=== PATIENT | male | born 1940 | race Caucasian/White ===

== ENCOUNTER 2018-04-25 10:44 | Emergency (ER) | payer OTHER ==
--- OUTSIDE RECORDS SUMMARY | 2018-04-25 10:47 | XMS REPORT ---
:1940 [facility] Address [address] [place] [address] Dr. Johnson [address] [place] [address] Care Team Providers Name Role Phone Unavailable Unavailable Unavailable Problems This patient has no known problems. Allergies, Adverse Reactions, Alerts This patient has no known allergies or adverse reactions. Medications This patient has no known medications.
[2018-04-25] MEDS ORDERED: ALBUTEROL 2.5 MG/3 ML NEB SOL ONE (11:31)
[2018-04-25] MEDS ORDERED: IPRATROPIUM BROM 0.5MG/2.5ML ONE (11:31)
--- NOTE | 2018-04-25 11:40 | RAD REPORT ---
EXAM DESCRIPTION: RAD - Chest Single View - 04/25/2018 11:35 am CLINICAL HISTORY: Cough COMPARISON: December 2013 TECHNIQUE: AP portable chest image was obtained 1129 hours . FINDINGS: Lung volumes are low accentuating lung markings. No focal consolidation, mass or failure f inding. Heart and vasculature are normal. No measurable pleural effusion and no pneumothorax. No acut e bony abnormality seen. No acute aortic findings suspected. IMPRESSION: No acute cardiopulmonary process. When adjusting for the shallow inspiration, chest is not substantially different from 2014.
[2018-04-25 11:41] LABS: Absolute Lymphocytes (CBC) 1.3 K/uL (0.7-4.9); Absolute Monocytes 0.7 K/uL (0.1-1.3); Absolute Neutrophil 10.1 K/uL (1.8-8.0); Basophils % 0.5 % (0-1.3); Eosinophils % 2.4 % (0-4.4); Hematocrit 43.5 % (39.6-49.0); Lymphocytes % 10.2 % (15.3-44.8); MPV 8.4 fL (7.6-11.3); Monocytes % 5.9 % (3.3-12.3); RBC Red Blood Cell Count 4.62 M/uL (4.33-5.43)
[2018-04-25 11:43] LABS: Protime INR 1.08
[2018-04-25 12:01] LABS: ALT/SGPT 26 U/L (12-78); AST/SGOT 14 U/L (15-37); Albumin 3.4 g/dL (3.4-5.0); Alkaline Phosphatase 78 U/L (45-117); BUN Blood Urea Nitrogen 20 mg/dL (7-18); Bicarbonate 27 mmol/L (21-32); Bilirubin Direct 0.1 mg/dL (0-0.2); Bilirubin Total 0.5 mg/dL (0.2-1.0); Glucose Level 95 mg/dL (74-106); Magnesium 2.3 mg/dL (1.8-2.4); NT PRO-BNP 162 pg/mL (<450); Potassium 4.3 mmol/L (3.5-5.1); Protein, Total 7.6 g/dL (6.4-8.2); Sodium Level 142 mmol/L (136-145); Troponin (Emerg Dept Use Only) < 0.02 ng/mL (0.0-0.045)
--- NOTE | 2018-04-25 13:06 | RAD REPORT ---
EXAM DESCRIPTION: CT - Thorax W/ Con - 04/25/2018 12:57 pm CLINICAL HISTORY: Cough, weakness COMPARISON: None. TECHNIQUE: Dynamically enhanced 5 mm thick images of the chest were obtained during administration o f 100 mL non-ionic IV contrast. All CT scans are performed using dose optimization technique as appropriate and may include automated exposure control or mA/KV adjustment according to patient size. FINDINGS: No mass or infiltrate in the lung parenchyma. No pleural thickening or pleural effusion. N o pneumothorax. No chest wall mass or abnormal axillary lymphadenopathy. Trace amount of atelectasis in each posterior gutter. No abnormal mediastinal or hilar mass or lymphadenopathy seen. Heart size is upper normal. No pericardial thickening or effusion. Bony degenerative changes are present. No acute or pathologic bone process identified. IMPRESSION: Minimal atelectasis in each posterior gutter. No acute or significant chest finding.
[2018-04-25] MEDS ORDERED: NA CHLORIDE 0.9% 250 ML ONE (13:23)
[2018-04-25] MEDS ORDERED: METHYLPREDNISOLONE 125 MG INJ ONE (13:23)
--- NOTE | 2018-04-25 15:14 | ER ---
Nurse's Notes [facility] Name: Kei Raya Age: 77 yrs Sex: Male : 1940 Arrival Date: 04/25/2018 Time: 10:50 Bed 7 Private MD: Samm Kong Diagnosis: Acute upper respiratory infection, unspecified Presentation: 04/25 11:01 Presenting complaint: Child states: He has had diarrhea over the last few days, sg worsening today. He has also had cough and sounds like his chest is congested, hes become very weak i think from the diarrhea, he might be dehydrated. Transition of care: patient was not received from another setting of care. Onset of symptoms was April 25, 2018. Risk Assessment: Do you want to hurt yourself or someone else? Patient reports no desire to harm self or others. Initial Sepsis Screen: Does the patient meet any 2 criteria? No. Patient's initial sepsis screen is negative. Does the patient have a suspected source of infection? Yes: Productive cough/pneumonia. Care prior to arrival: None. 11:01 Method Of Arrival: Wheelchair sg 11:01 Acuity: NILAM 3 sg Historical: - Allergies: 11:04 No Known Allergies; sg - Home Meds: 11:18 lisinopril 10 mg Oral tab 1 tab once daily [Active]; divalproex 250 mg oral TbEC 1 tab jl7 once daily [Active]; allopurinol 100 mg Oral tab 1 tab once daily [Active]; Naqzmaric 28/10mg daily [Active]; risperidone 1 mg oral TbDL 1 tab once daily [Active]; prednisone 20 mg Oral tab 5 tabs [Active]; - PMHx: 11:04 Gout; sg 11:18 Hypertension; Alzheimers; jl7 - Immunization history:: Adult Immunizations up to date. - Social history:: Smoking status: unknown. - Ebola Screening: : Patient negative for fever greater than or equal to 101.5 degrees Fahrenheit, and additional compatible Ebola Virus Disease symptoms Patient denies exposure to infectious person Patient denies travel to an Ebola-affected area in the 21 days before illness onset No symptoms or risks identified at this time. Screenin:18 Abuse screen: Denies threats or abuse. Denies injuries from another. Nutritional jl7 screening: No deficits noted. Tuberculosis screening: No symptoms or risk factors identified. Fall Risk Secondary diagnosis (15 points) Alzheimer's, IV access (20 points). Total Bedoya Fall Scale indicates Low Risk Score (25-44 pts). Fall prevention measures have been instituted. Side Rails Up X 2 Placed close to Nursing Station Frequent Obs/Assesments occuring Family Present and informed to notify staff if they need to leave bedside As available Patient and Family Educated on Fall Prevention Program and strategies. Assessment: 11:11 General: Appears in no apparent distress. uncomfortable, Behavior is calm, cooperative. jl7 Pain: Denies pain. Neuro: Level of Consciousness is awake, alert, Oriented to PT's family reports "He's a lot less verbal since Thanksgiving.". Cardiovascular: Heart tones S1 S2 present Patient's skin is warm and dry. Respiratory: Airway is patent Respiratory effort is even, unlabored, Respiratory pattern is regular, symmetrical. GI: Bowel sounds present X 4 quads. Parent/caregiver reports the patient having diarrhea, since this morning. : No signs and/or symptoms were reported regarding the genitourinary system. EENT: No signs and/or symptoms were reported regarding the EENT system. Derm: Skin is pink, warm \\T\\ dry. Musculoskeletal: No signs and/or symptoms reported regarding the musculoskeletal system. 12:00 Reassessment: Patient appears in no apparent distress at this time. No changes from jl7 previously documented assessment. Patient and/or family updated on plan of care and expected duration. Pain level reassessed. Patient is alert, oriented x 3, equal unlabored respirations, skin warm/dry/pink. 13:30 Reassessment: Patient and/or family updated on plan of care and expected duration. Pain jl7 level reassessed. Patient is alert, oriented x 3, equal unlabored respirations, skin warm/dry/pink. 15:00 Reassessment: Pt reports pain in the left knee, rated 8/10, ERP notified, see MAR for jl7 orders. 15:15 Reassessment: Patient states symptoms have improved. jl7 Vital Signs: 11:00 BP 110 / 71; jl7 11:03 Pulse 87; Resp 20; Temp 99.0; Pulse Ox 96% on R/A; Weight 108.86 kg; Height 6 ft. 0 in. sg (182.88 cm); 11:30 BP 107 / 46; Pulse 81; Resp 16 S; Pulse Ox 100% on R/A; jl7 12:00 BP 99 / 50; Pulse 103; Resp 16 S; Pulse Ox 100% on R/A; jl7 12:30 BP 100 / 62; Pulse 115; Resp 16 S; Pulse Ox 100% on R/A; jl7 13:36 BP 119 / 58; Pulse 91; Resp 14 S; Pulse Ox 99% on R/A; jl7 15:00 BP 120 / 65; Pulse 90; Resp 16 S; Pulse Ox 100% on R/A; jl7 16:13 BP 118 / 61; Pulse 89; Resp 16 S; Pulse Ox 100% on R/A; jl7 11:03 Body Mass Index 32.55 (108.86 kg, 182.88 cm) ED Course: 10:50 Patient arrived in ED. mr 10:50 Samm Kong MD is Private Physician. mr 10:56 Jose Matthew PA is PHCP. cp 10:56 Jose Gibson MD is Attending Physician. cp 11:03 Meri Santana RN is Primary Nurse. jl7 11:03 Triage completed. sg 11:03 Arm band placed on. sg 11:05 First set of blood cultures drawn by me. jb1 11:18 Patient has correct armband on for positive identification. Placed in gown. Bed in low jl7 position. Call light in reach. Side rails up X2. green building energy engineer on. Pulse ox on. NIBP on. 11:20 Second set of blood cultures drawn by me. jb1 11:22 EKG done, reviewed by Jose MARROQUIN. at1 11:30 Inserted saline lock: 22 gauge in right antecubital area, using aseptic technique. jb1 Blood collected. 11:30 Initial lab(s) drawn, by me, sent to lab. jb1 11:30 Flu and/or RSV swab sent to lab. jb1 11:34 Procalcitonin Sent. jl7 11:36 XRAY Chest (1 view) In Process Unspecified. EDMS 12:58 CT Chest W/ Con In Process Unspecified. EDMS 15:00 Urine collected: straight cath specimen, clear. Straight cath inserted, using sterile jl7 technique, 16 Fr. Specimen obtained. 16:15 No provider procedures requiring assistance completed. IV discontinued, intact, jl7 bleeding controlled, No redness/swelling at site. Pressure dressing applied. Administered Medications: 11:23 Drug: Albuterol - atroVENT (3:1) (2.5 mg - 0.5 mg) 3 ml Route: Nebulizer; jl7 12:00 Follow up: Response: No adverse reaction jl7 13:24 Drug: NS 0.9% 250 ml Route: IV; Rate: bolus; Site: right antecubital; jl7 14:00 Follow up: Response: No adverse reaction; IV Status: Completed infusion jl7 13:24 Drug: SOLU-Medrol 125 mg Route: IVP; Site: right antecubital; jl7 14:00 Follow up: Response: No adverse reaction jl7 15:00 Drug: fentaNYL (PF) 25 mcg Route: IVP; Site: right antecubital; jl7 16:12 Follow up: Response: No adverse reaction jl7 Outcome: 15:13 Discharge ordered by MD. cp 16:15 Discharged to home via wheelchair, with family. jl7 16:15 Condition: stable 16:15 Discharge instructions given to patient, family, Instructed on discharge instructions, follow up and referral plans. medication usage, Demonstrated understanding of instructions, follow-up care, medications, Prescriptions given X 2. 16:17 Patient left the ED. jl7 Signatures: Dispatcher [employer] EDChai Hernandez jb1 Vinicius Olson, RN Mariela Ramos Amanda, pump press operator EKG Tat1 Jose Matthew PA PA cp Leal, Jahala, RN INDY zarate
--- NOTE | 2018-04-25 15:15 | EDPHYS ---
Physician Documentation [facility] Name: Kei Raya Age: 77 yrs Sex: Male : 1940 Arrival Date: 04/25/2018 Time: 10:50 Bed 7 Private MD: Samm Kong ED Physician Jose Gibson HPI: 04/25 11:14 This 77 yrs old Male presents to ER via Wheelchair with complaints of cp Diarrhea, Cough, Congestion. 11:14 The patient or guardian reports cough, that is intermittent. Onset: The cp symptoms/episode began/occurred last month. 11:14 Associated signs and symptoms: Pertinent positives: diarrhea, Pertinent negatives: cp chest pain, fever, vomiting. Severity of symptoms: in the emergency department the symptoms are unchanged. 11:15 Family report patient is a resident of assisted living and recently finished cp prescriptions for Zithromax and prednisone. Historical: - Allergies: 11:04 No Known Allergies; sg - Home Meds: 11:18 lisinopril 10 mg Oral tab 1 tab once daily [Active]; divalproex 250 mg oral TbEC 1 tab jl7 once daily [Active]; allopurinol 100 mg Oral tab 1 tab once daily [Active]; Naqzmaric 28/10mg daily [Active]; risperidone 1 mg oral TbDL 1 tab once daily [Active]; prednisone 20 mg Oral tab 5 tabs [Active]; - PMHx: 11:04 Gout; sg 11:18 Hypertension; Alzheimers; jl7 - Immunization history:: Adult Immunizations up to date. - Social history:: Smoking status: unknown. - Ebola Screening: : Patient negative for fever greater than or equal to 101.5 degrees Fahrenheit, and additional compatible Ebola Virus Disease symptoms Patient denies exposure to infectious person Patient denies travel to an Ebola-affected area in the 21 days before illness onset No symptoms or risks identified at this time. ROS: 11:18 Constitutional: Negative for body aches, fever, poor PO intake. cp 11:18 Eyes: Negative for injury, pain, redness, and discharge. cp 11:18 ENT: Negative for drainage from ear(s), ear pain, sore throat, difficulty swallowing, difficulty handling secretions. 11:18 Cardiovascular: Negative for chest pain. 11:18 Respiratory: Positive for cough, wheezing. 11:18 Abdomen/GI: Positive for diarrhea, Negative for abdominal pain, vomiting, constipation, black/tarry stool, rectal bleeding. 11:18 Back: Negative for pain at rest, pain with movement, radiated pain. 11:18 Skin: Negative for cellulitis, rash. 11:18 Neuro: Positive for general weakness, Negative for altered mental status, dizziness, headache. 11:18 All other systems are negative. Exam: 11:21 ECG was reviewed by the Attending Physician. cp 11:24 Constitutional: The patient appears in no acute distress, alert, awake, cp non-diaphoretic, non-toxic, well developed, well nourished. 11:24 Head/Face: Normocephalic, atraumatic. cp 11:24 Eyes: Periorbital structures: appear normal, Conjunctiva: normal, no exudate, no injection, Sclera: no appreciated abnormality, Lids and lashes: appear normal, bilaterally. 11:24 ENT: External ear(s): are unremarkable, Ear canal(s): are normal, clear, TM's: bulging, is not appreciated, bilaterally, erythema, is not appreciated, bilaterally, Nose: is normal, Mouth: Lips: moist, Oral mucosa: pink and intact, moist, Posterior pharynx: Airway: no evidence of obstruction, patent, Tonsils: are normal in appearance. 11:24 Neck: ROM/movement: is normal, is supple, without pain, no range of motions limitations, no meningismus, no nuchal rigidity. 11:24 Chest/axilla: Inspection: normal, Palpation: is normal, no crepitus, no tenderness. 11:24 Cardiovascular: Rate: normal, Rhythm: regular, Edema: ankle edema, that is very mild, JVD: is not appreciated. 11:24 Respiratory: the patient does not display signs of respiratory distress, Respirations: normal, no use of accessory muscles, no retractions, no splinting, no tachypnea, labored breathing, is not present, Breath sounds: bronchial sounds, that are mild, are heard diffusely, rhonchi, are not appreciated, stridor, is not appreciated, wheezing: that is mild, is heard diffusely. 11:24 Abdomen/GI: Inspection: abdomen appears normal, Bowel sounds: active, all quadrants, Palpation: abdomen is soft and non-tender, in all quadrants. 11:24 Back: pain, is absent, ROM is normal. 11:24 Skin: cellulitis, is not appreciated, no rash present. Vital Signs: 11:00 BP 110 / 71; jl7 11:03 Pulse 87; Resp 20; Temp 99.0; Pulse Ox 96% on R/A; Weight 108.86 kg; Height 6 ft. 0 in. sg (182.88 cm); 11:30 BP 107 / 46; Pulse 81; Resp 16 S; Pulse Ox 100% on R/A; jl7 12:00 BP 99 / 50; Pulse 103; Resp 16 S; Pulse Ox 100% on R/A; jl7 12:30 BP 100 / 62; Pulse 115; Resp 16 S; Pulse Ox 100% on R/A; jl7 13:36 BP 119 / 58; Pulse 91; Resp 14 S; Pulse Ox 99% on R/A; jl7 15:00 BP 120 / 65; Pulse 90; Resp 16 S; Pulse Ox 100% on R/A; jl7 16:13 BP 118 / 61; Pulse 89; Resp 16 S; Pulse Ox 100% on R/A; jl7 11:03 Body Mass Index 32.55 (108.86 kg, 182.88 cm) sg MDM: 10:56 Patient medically screened. cp 11:30 Differential diagnosis: bronchitis, flu, URI, pneumonia, sepsis, UTI. cp 15:12 Antibiotic administration: Not indicated, the patient does not have an appreciated cp infiltrate. 15:12 Data reviewed: vital signs, nurses notes, lab test result(s), EKG, radiologic studies, cp plain films. Test interpretation: by ED physician or midlevel provider: ECG, plain radiologic studies. Counseling: I had a detailed discussion with the patient and/or guardian regarding: the historical points, exam findings, and any diagnostic results supporting the discharge/admit diagnosis, lab results, radiology results, to return to the emergency department if symptoms worsen or persist or if there are any questions or concerns that arise at home. Response to treatment: the patient's symptoms have markedly improved after treatment, and as a result, I will discharge patient. 04/25 11:10 Order name: Influenza Screen (a \T\ B) cp 04/25 11:10 Order name: Blood Culture Adult (2) cp 04/25 11:10 Order name: Procalcitonin cp 04/25 11:10 Order name: Lactate; Complete Time: 12:19 04/25 11:10 Order name: Basic Metabolic Panel; Complete Time: 12:19 04/25 12:23 Interpretation: Normal except: CL 109; BUN 20; CRE 1.36; GFR 51; CA 8.4. cp 04/25 11:10 Order name: CBC with Diff; Complete Time: 11:55 04/25 11:55 Interpretation: Normal except: WBC 12.5; MCV 94.2; GRACIELA% 81.0; LYM% 10.2; NEUT A 10.1. cp 04/25 11:10 Order name: LFT's; Complete Time: 12:19 04/25 12:20 Interpretation: Normal except: AST 14; GLOB 4.2; A/G 0.8. 04/25 11:10 Order name: Magnesium; Complete Time: 12:19 04/25 11:10 Order name: NT PRO-BNP; Complete Time: 12:19 04/25 11:10 Order name: PT-INR; Complete Time: 11:55 04/25 11:10 Order name: Troponin (emerg Dept Use Only); Complete Time: 12:19 04/25 12:21 Interpretation: TROPED < 0.02; Reviewed. 04/25 11:10 Order name: Influenza Screen (A ; Complete Time: 12:19 [facility] 04/25 12:24 Interpretation: Reviewed. 04/25 11:10 Order name: Blood Culture [facility] 04/25 11:10 Order name: Procalcitonin; Complete Time: 12:23 [facility] 04/25 11:10 Order name: XRAY Chest (1 view); Complete Time: 11:55 04/25 11:10 Order name: EKG; Complete Time: 11:11 04/25 11:10 Order name: Cardiac monitoring; Complete Time: 11:31 04/25 11:10 Order name: EKG - Nurse/Tech; Complete Time: 11:31 04/25 11:10 Order name: IV Saline Lock; Complete Time: 11:31 04/25 11:10 Order name: Labs collected and sent; Complete Time: 11:31 04/25 11:10 Order name: O2 Per Protocol; Complete Time: 11:31 04/25 11:10 Order name: O2 Sat Monitoring; Complete Time: 11:31 cp 04/25 11:55 Order name: Urine Microscopic Only cp 04/25 11:55 Order name: Urine Dipstick-Ancillary (obtain specimen); Complete Time: 14:52 cp 04/25 12:31 Order name: CT Chest W/ Con; Complete Time: 13:18 cp 04/25 13:18 Interpretation: Report reviewed. cp 04/25 15:05 Order name: Urine Dipstick--Ancillary (enter results) em1 04/25 13:25 Order name: PO challenge; Complete Time: 16:09 cp EC:21 Rate is 83 beats/min. Rhythm is regular. OH interval is normal. QRS interval is normal. cp QT interval is normal. Interpreted by me. Reviewed by me. Administered Medications: 11:23 Drug: Albuterol - atroVENT (3:1) (2.5 mg - 0.5 mg) 3 ml Route: Nebulizer; 7 12:00 Follow up: Response: No adverse reaction [facility] 13:24 Drug: NS 0.9% 250 ml Route: IV; Rate: bolus; Site: right antecubital; jl7 14:00 Follow up: Response: No adverse reaction; IV Status: Completed infusion jl7 13:24 Drug: SOLU-Medrol 125 mg Route: IVP; Site: right antecubital; jl7 14:00 Follow up: Response: No adverse reaction jl7 15:00 Drug: fentaNYL (PF) 25 mcg Route: IVP; Site: right antecubital; jl7 16:12 Follow up: Response: No adverse reaction [facility] Disposition: 04/26 07:08 Co-signature as Attending Physician, Jose Gibson MD I agree with the assessment and evette plan of care. Disposition: 04/25/18 15:13 Discharged to Home. Impression: Acute upper respiratory infection, unspecified. - Condition is Stable. - Discharge Instructions: Upper Respiratory Infection, Adult. - Prescriptions for Albuterol Sulfate 2.5 mg /3 mL (0.083 %) Inhalation Solution for Nebulization - inhale 1 unit by NEBULIZATION route every 8 hours As needed; 1 box. Prednisone 20 mg Oral Tablet - take 2 tablet by ORAL route once daily for 5 days; 10 tablet. - Medication Reconciliation Form, Thank You Letter, Antibiotic Education, Prescription Opioid Use form. - Follow up: Private Physician; When: 1 - 2 days; Reason: Recheck today's complaints. - Problem is new. - Symptoms have improved. Signatures: Dispatcher [employer] EDVinicius Garcia, RN RN Jose Jade MD MD cha Page, Corey, LOPEZ MARORQUIN cp Meri Santana RN RN jl7 Corrections: (The following items were deleted from the chart) 04/25 12:23 12:20 Normal except: CL 109; BUN 20; CRE 1.36; GFR 51. cp cp 16:17 15:13 04/25/2018 15:13 Discharged to Home. Impression: Acute upper respiratory jl7 infection, unspecified. Condition is Stable. Forms are Medication Reconciliation Form, Thank You Letter, Antibiotic Education, Prescription Opioid Use. Follow up: Private Physician; When: 1 - 2 days; Reason: Recheck today's complaints. Problem is new. Symptoms have improved. cp
[2018-04-25 15:25] LABS: Urine Bacteria <20 /HPF (NONE SEEN)
[2018-04-25 15:26] LABS: Urine Blood TRACE (NEG); Urine Glucose NEGATIVE (NEG); Urine Protein NEGATIVE (NEG)
[2018-04-25 15:26] LABS: Urine Culture Reflex Order NOT NEEDED
[2018-04-25 16:40] VITALS: TEMP 99
[2018-04-25 16:46] VITALS: O2SAT 100
[2018-04-25 16:48] VITALS: BP 118/61
--- NOTE | 2018-04-26 06:24 | EKG ---
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
== END 2018-04-25 16:17 | disposition home or self-care (01) ==
LOC: ER 10:44
DX: J06.9 Acute upper respiratory infection, unspecified (principal); I10 Essential (primary) hypertension; G30.9 Alzheimer's disease, unspecified; F02.80 Dementia in other diseases classified elsewhere, unspecified severity, without behavioral disturbance, psychotic disturbance, mood disturbance, and anxiety; R19.7 Diarrhea, unspecified
CPT/HCPCS: 36415; 51702; 71045; 71260; 80048; 80076; 83605; 83735; 83880; 84145; 84484; 85025; 85610; 87040 ×2; 87804 ×2; 93005; 94640; 96365; 96375; 99285; J2930; Q9967; 81003; 81015

== ENCOUNTER 2018-06-04 12:29 | Emergency (ER) | payer OTHER ==
--- OUTSIDE RECORDS SUMMARY | 2018-06-04 12:31 | XMS REPORT ---
:1940 [facility] Address [address] [place] [address] Dr. Johnson [address] [place] [address] Care Team Providers Name Role Phone Unavailable Unavailable Unavailable Problems This patient has no known problems. Allergies, Adverse Reactions, Alerts This patient has no known allergies or adverse reactions. Medications This patient has no known medications.
--- NOTE | 2018-06-04 14:27 | RAD REPORT ---
EXAM DESCRIPTION: CT - C Spine Wo Con - 06/04/2018 2:19 pm CLINICAL HISTORY: PAIN Neck pain, injury, radiculopathy COMPARISON: CT HEAD CSPINE MPR WO CONTRAST dated 05/10/2015 FINDINGS: Prominent degenerative changes present throughout the mid and lower cervical spine. Advanc ed disc thinning with large posterior osteophyte noted at C5-6. 3 mm degenerative anterolisthesis is present C7 on T1. Bony fusion of the vertebral bodies noted at C6 -7. No evidence of acute cervical spine fracture or subluxation. Prevertebral soft tissues are normal in thickness. Mild polypoid mucosal thickening affects the left maxillary antrum. IMPRESSION: Moderate multilevel spondylosis of the mid and lower cervical spine is noted without acu te traumatic finding seen. If symptomology persists or progresses, MR imaging may be of value. All CT scans are performed using dose optimization technique as appropriate and may include automated exposure control or mA/KV adjustment according to patient size.
--- NOTE | 2018-06-04 14:34 | RAD REPORT ---
EXAM DESCRIPTION: CT - Foot Left Wo Con - 06/04/2018 2:19 pm CLINICAL HISTORY: PAIN Foot wound/ ulcer, possible osteomyelitis COMPARISON: No comparisons FINDINGS: Skin thickening with subcutaneous fat stranding is seen along the forefoot. There is ill-d efined tissue adjacent to the fifth metacarpal distally and fifth metacarpal head along the lateral m argin of the foot. Moderate soft tissue edema in the subcutaneous space along the lateral malleolus a lso evident. Moderate metatarsus primus adductus is seen with hallux valgus. No acute fracture or subluxation seen . No bony destructive finding is identified to indicate osteomyelitis. No soft tissue mass, hematoma or fluid collection. Tiny metallic foreign body is likely present in the heel pad measuring 3 mm and approximately 10 mm d eep to the skin surface. IMPRESSION: No bony destructive changes seen to indicate osteomyelitis at this time. If there is con tinued clinical concern for possible osteomyelitis, MR imaging would be advised which is more sensiti ve for early osteomyelitis findings. All CT scans are performed using dose optimization technique as appropriate and may include automated exposure control or mA/KV adjustment according to patient size.
[2018-06-04 14:55] LABS: Absolute Lymphocytes (CBC) 2.5 K/uL (0.7-4.9); Absolute Monocytes 0.7 K/uL (0.1-1.3); Absolute Neutrophil 6.2 K/uL (1.8-8.0); Basophils % 0.5 % (0-1.3); Eosinophils % 5.1 % (0-4.4); Hematocrit 40.9 % (39.6-49.0); MPV 10.1 fL (7.6-11.3); Monocytes % 6.7 % (3.3-12.3); RBC Red Blood Cell Count 4.33 M/uL (4.33-5.43)
[2018-06-04 15:28] LABS: Potassium 4.6 mmol/L (3.5-5.1)
--- NOTE | 2018-06-04 16:17 | ER ---
Nurse's Notes [facility] Name: Kei Raya Age: 77 yrs Sex: Male : 1940 Arrival Date: 06/04/2018 Time: 12:33 Bed 15 Private MD: Diagnosis: Cellulitis of left toe;Spondylolysis, cervical region Presentation: 06/04 12:34 Presenting complaint: Left foot wound x 3 weeks. Transition of care: patient was not hb received from another setting of care. Onset of symptoms is unknown. Risk Assessment: Do you want to hurt yourself or someone else? Patient reports no desire to harm self or others. Care prior to arrival: None. 12:34 Method Of Arrival: Wheelchair hb 12:34 Acuity: NILAM 3 hb 12:40 Initial Sepsis Screen: Does the patient meet any 2 criteria? No. Patient's initial rb1 sepsis screen is negative. Does the patient have a suspected source of infection? No. Patient's initial sepsis screen is negative. Historical: - Allergies: 12:38 No Known Allergies; hb - Home Meds: 12:38 allopurinol 100 mg Oral tab 1 tab once daily [Active]; divalproex 250 mg Oral TbEC 1 hb tab once daily [Active]; lisinopril 10 mg Oral tab 1 tab once daily [Active]; Naqzmaric 28/10mg daily [Active]; risperidone 1 mg Oral TbDL 1 tab once daily [Active]; prednisone 20 mg Oral tab 5 tabs [Active]; - PMHx: 12:38 Alzheimers; Gout; Hypertension; hb - PSHx: 12:40 Knee surgery; elbow; right foot; rb1 - Immunization history:: Adult Immunizations up to date. - Social history:: Smoking status: Patient/guardian denies using tobacco. - Ebola Screening: : No symptoms or risks identified at this time. Screenin:40 Abuse screen: Denies threats or abuse. Nutritional screening: No deficits noted. rb1 Tuberculosis screening: No symptoms or risk factors identified. Fall Risk None identified. Assessment: 12:40 General: Appears in no apparent distress. comfortable, Behavior is calm, cooperative, rb1 Denies fever. General: Pt. is from [facility], an assisted living facility.. Pain: Complains of pain in neck Pain currently is 7 out of 10 on a pain scale. Neuro: Level of Consciousness is awake, obeys commands, confused, Oriented to person, situation, History of Alzheimers. Cardiovascular: Capillary refill < 3 seconds is brisk in bilateral toes. Respiratory: Airway is patent Respiratory effort is even, unlabored, Respiratory pattern is regular, symmetrical. GI: No signs and/or symptoms were reported involving the gastrointestinal system. : No signs and/or symptoms were reported regarding the genitourinary system. Derm: Wound noted left toes Other: Pt. had an ingrown toenail removed and just finished taking oral antibiotics. 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 13:40 Reassessment: Pt. off unit for testing. rb1 14:40 Reassessment: Patient appears in no apparent distress at this time. Patient and/or rb1 family updated on plan of care and expected duration. Pain level reassessed. Patient is alert, oriented x 3, equal unlabored respirations, skin warm/dry/pink. Respirations even, unlabored. 15:40 Reassessment: Patient appears in no apparent distress at this time. Pt. is resting with rb1 eyes closed, respirations even, unlabored. Call light within reach. Family at bedside. 16:34 Reassessment: Patient appears in no apparent distress at this time. Patient and/or rb1 family updated on plan of care and expected duration. Pain level reassessed. Patient is alert, oriented x 3, equal unlabored respirations, skin warm/dry/pink. Vital Signs: 12:37 BP 105 / 53; Pulse 75; Resp 16; Temp 97.2; Pulse Ox 100% on R/A; hb 13:30 rb1 14:30 BP 101 / 52; Pulse 63; Resp 15; Pulse Ox 100% on R/A; rb1 15:30 BP 125 / 71; Pulse 68; Resp 16; Pulse Ox 98% on R/A; Pain 0/10; rb1 16:30 BP 110 / 58; Pulse 63; Resp 15; Pulse Ox 99% on R/A; Pain 4/10; rb1 13:30 Pt off unit for testing [facility] ED Course: 12:33 Patient arrived in ED. as 12:36 Triage completed. hb 12:37 Arm band placed on. hb 12:40 Patient has correct armband on for positive identification. Bed in low position. Call rb1 light in reach. Side rails up X 1. Pulse ox on. NIBP on. 12:55 Nayan Chang MD is Attending Physician. 13:12 Chaparrita Inman, RN is Primary Nurse. rb1 13:25 CT completed. Patient tolerated procedure well. Patient moved to CT via stretcher. sj Patient moved back from CT. 13:37 Patient moved to MRI via stretcher. ka 14:20 C Spine Wo Con In Process Unspecified. EDMS 14:20 Foot Left Wo Con In Process Unspecified. EDMS 14:45 Initial lab(s) drawn, by ct, sent to lab. First set of blood cultures drawn by ct, [facility] Second set of blood cultures drawn by ct. 14:47 Inserted saline lock: 20 gauge in right antecubital area, using aseptic technique. 5 Blood collected. 14:49 Patient has correct armband on for positive identification. Placed in gown. Bed in low mh5 position. Call light in reach. Side rails up X2. Adult w/ patient. Warm blanket given. monitoring analyst on. Pulse ox on. NIBP on. 14:50 Basic Metabolic Panel Sent. [facility] 14:51 CBC with Diff Sent. [facility] 14:51 Blood Culture* Sent. [facility] 16:15 Reginaldo Dietz DPM is Referral Physician. 16:35 No provider procedures requiring assistance completed. IV discontinued, intact, rb1 bleeding controlled, No redness/swelling at site. Pressure dressing applied. Administered Medications: No medications were administered Outcome: 16:16 Discharge ordered by . 16:35 Discharged to Assisted Living. Family is transporting the pt. to the facility. Pt. left [facility] ED via wheelchair with family. 16:35 Condition: stable 16:35 Discharge instructions given to family, Instructed on discharge instructions, follow up and referral plans. medication usage, Demonstrated understanding of instructions, follow-up care, medications, Prescriptions given X 1. 16:37 Patient left the ED. rb1 Signatures: Dispatcher [employer] EDMS Claudia Bishop Amelia as Barber, Rebecca, RN INDY rb1 Noreen Pike Heather, RN RN hb Martinez, Maria [facility] Nayan Chang MD MD Corrections: (The following items were deleted from the chart) 13:59 13:50 In radiology for Foot Left Wo Cont. EDMS EDMS
--- NOTE | 2018-06-04 16:17 | EDPHYS ---
Physician Documentation [facility] Name: Kei Raya Age: 77 yrs Sex: Male : 1940 Arrival Date: 06/04/2018 Time: 12:33 Bed 15 Private MD: ED Physician Nayan Chang HPI: 06/04 16:03 This 77 yrs old Male presents to ER via Wheelchair with complaints of Foot gs Infection. 16:03 Description: draining, erythematous. Onset: The symptoms/episode began/occurred 1 gs week(s) ago. Possible cause(s): unknown. Associated signs and symptoms: Pertinent negatives: fever. Modifying factors: the symptoms are alleviated by nothing, the symptoms are aggravated by nothing. Severity of symptoms: At their worst the symptoms were moderate, in the emergency department the symptoms are unchanged. The patient has not experienced similar symptoms in the past. Historical: - Allergies: 12:38 No Known Allergies; hb - Home Meds: 12:38 allopurinol 100 mg Oral tab 1 tab once daily [Active]; divalproex 250 mg Oral TbEC 1 hb tab once daily [Active]; lisinopril 10 mg Oral tab 1 tab once daily [Active]; Naqzmaric 28/10mg daily [Active]; risperidone 1 mg Oral TbDL 1 tab once daily [Active]; prednisone 20 mg Oral tab 5 tabs [Active]; - PMHx: 12:38 Alzheimers; Gout; Hypertension; hb - PSHx: 12:40 Knee surgery; elbow; right foot; rb1 - Immunization history:: Adult Immunizations up to date. - Social history:: Smoking status: Patient/guardian denies using tobacco. - Ebola Screening: : No symptoms or risks identified at this time. ROS: 16:03 All other systems are negative. gs 16:03 Neck: Positive for pain with movement, no injury. gs Exam: 16:03 Cardiovascular: Regular rate and rhythm with a normal S1 and S2. No gallops, murmurs, gs or rubs. Normal PMI, no JVD. No pulse deficits. Respiratory: Lungs have equal breath sounds bilaterally, clear to auscultation and percussion. No rales, rhonchi or wheezes noted. No increased work of breathing, no retractions or nasal flaring. Abdomen/GI: Soft, non-tender, with normal bowel sounds. No distension or tympany. No guarding or rebound. No evidence of tenderness throughout. Back: No spinal tenderness. No costovertebral tenderness. Full range of motion. Skin: Warm, dry with normal turgor. Normal color with no rashes, no lesions, and no evidence of cellulitis. 16:03 Constitutional: The patient appears alert, awake. 16:03 Neck: External neck: tenderness, that is mild, of the left trapezius, lower cervical area and right trapezius. 16:03 Musculoskeletal/extremity: Pulses: skin breakdown between left toes mild swelling. 16:03 Neuro: Exam negative for acute changes. Vital Signs: 12:37 BP 105 / 53; Pulse 75; Resp 16; Temp 97.2; Pulse Ox 100% on R/A; hb 13:30 rb1 14:30 BP 101 / 52; Pulse 63; Resp 15; Pulse Ox 100% on R/A; rb1 15:30 BP 125 / 71; Pulse 68; Resp 16; Pulse Ox 98% on R/A; Pain 0/10; rb1 16:30 BP 110 / 58; Pulse 63; Resp 15; Pulse Ox 99% on R/A; Pain 4/10; rb1 13:30 Pt off unit for testing rb1 MDM: 13:04 Patient medically screened. 16:03 Differential diagnosis: cellulitis, osteomyelitis. Data reviewed: vital signs, nurses notes, lab test result(s), radiologic studies. Response to treatment: the patient's symptoms have mildly improved after treatment. 16:03 Physician consultation: Reginaldo Dietz DPM regarding patient's condition, and will see patient in office, would like medications started. 06/04 13:06 Order name: CBC with Diff; Complete Time: 15:36 06/04 13:06 Order name: Basic Metabolic Panel; Complete Time: 15:36 06/04 13:06 Order name: Blood Culture* 06/04 13:59 Order name: C Spine Wo Con; Complete Time: 14:36 EDMS 06/04 13:59 Order name: Foot Left Wo Con; Complete Time: 14:36 EDMS Administered Medications: No medications were administered Disposition: 06/04/18 16:16 Discharged to Home. Impression: Cellulitis of left toe, Spondylolysis, cervical region. - Condition is Stable. - Discharge Instructions: Arthritis, Cellulitis, Adult. - Prescriptions for Keflex 500 mg Oral Capsule - take 1 capsule by ORAL route every 12 hours for 7 days; 14 capsule. - Medication Reconciliation Form, Thank You Letter, Antibiotic Education, Prescription Opioid Use form. - Follow up: Reginaldo Dietz DPM; When: 1 - 2 days; Reason: Re-evaluation by your physician. - Problem is an ongoing problem. - Symptoms are unchanged. Signatures: Dispatcher [employer] EDTX Chaparrita Inman RN RN rb1 Nadiya Nolan RN RN Nayan Chang MD MD Corrections: (The following items were deleted from the chart) 13:29 13:06 C Spine Wo Con+CT.RAD.BRZ ordered. EDTX EDTX 13:29 13:19 Foot Left Wo Con ordered. EDTX EDMS 13:41 13:30 MRA Foot Left ordered. EDTX EDMS 13:58 13:30 C Spine Wo Cont ordered. EDTX EDMS 13:59 13:41 Foot Left Wo Cont ordered. EDTX EDTX 16:37 16:16 06/04/2018 16:16 Discharged to Home. Impression: Cellulitis of left toe; rb1 Spondylolysis, cervical region. Condition is Stable. Forms are Medication Reconciliation Form, Thank You Letter, Antibiotic Education, Prescription Opioid Use. Follow up: Reginaldo Dietz; When: 1 - 2 days; Reason: Re-evaluation by your physician. Problem is an ongoing problem. Symptoms are unchanged. gs
[2018-06-04 17:06] VITALS: TEMP 97.2
[2018-06-04 17:22] VITALS: BP 110/58; O2SAT 99
== END 2018-06-04 16:37 | disposition home or self-care (01) ==
LOC: ER 12:29
DX: L03.032 Cellulitis of left toe (principal); M47.892 Other spondylosis, cervical region; I10 Essential (primary) hypertension; G30.9 Alzheimer's disease, unspecified; F02.80 Dementia in other diseases classified elsewhere, unspecified severity, without behavioral disturbance, psychotic disturbance, mood disturbance, and anxiety
CPT/HCPCS: 36415; 72125; 73700; 80048; 85025; 87040

== ENCOUNTER 2018-07-30 14:45 | Observation (INO) | payer OTHER ==
[2018-07-30] MEDS: ENOXAPARIN 100 MG/ML SYR SQ SCH ×2 (06:00→18:00)
--- OUTSIDE RECORDS SUMMARY | 2018-07-30 14:47 | XMS REPORT ---
:1940 Author Organization [facility] Address [address] [place] [address] Dr. [address] [place] [address] Care Team Providers Name Role Phone Unavailable Unavailable Unavailable Problems This patient has no known problems. Allergies, Adverse Reactions, Alerts This patient has no known allergies or adverse reactions. Medications This patient has no known medications.
--- NOTE | 2018-07-30 15:47 | RAD REPORT ---
EXAM DESCRIPTION: US - Extremity Venous Uni Ltd - 07/30/2018 3:34 pm CLINICAL HISTORY: Swelling;Pain Leg swelling and edema. COMPARISON: EXT VENOUS UNI LTD dated 12/19/2013 FINDINGS: Left lower extremity venous system was interrogated with Doppler technique. Thrombus is no suzy in the left common femoral vein to the posterior tibial vein. IMPRESSION: Positive for left lower extremity DVT.
--- NOTE | 2018-07-30 15:54 | RAD REPORT ---
EXAM DESCRIPTION: RAD - Chest Single View - 07/30/2018 3:46 pm CLINICAL HISTORY: SWELLING Chest pain. COMPARISON: Chest Single View dated 04/25/2018; CHEST SINGLE VIEW dated 12/31/2013; CHEST SINGLE VIEW dated 12/19/2013; CHEST PA AND LAT 2 VIEW dated 10/15/2013 FINDINGS: Portable technique limits examination quality. The lungs are grossly clear. The heart is normal in size. No displaced fractures. IMPRESSION: No acute intrathoracic process suspected.
[2018-07-30] MEDS ORDERED: ENOXAPARIN 100 MG/ML SYR SQ ONE (16:29)
[2018-07-30] MEDS ORDERED: HYDROCODONE/APAP 5/325 MG TAB ONE (16:44)
[2018-07-30 16:50] LABS: Absolute Monocytes 0.8 K/uL (0.1-1.3); Absolute Neutrophil 4.8 K/uL (1.8-8.0); Basophils % 0.7 % (0-1.3); Eosinophils % 2.8 % (0-4.4); Lymphocytes % 24.9 % (15.3-44.8); MPV 9.2 fL (7.6-11.3); Monocytes % 9.8 % (3.3-12.3); RBC Red Blood Cell Count 4.32 M/uL (4.33-5.43)
[2018-07-30 16:59] LABS: Protime INR 1.05
--- NOTE | 2018-07-30 17:09 | EKG ---
Test Date: 2018-07-30 Test Time: 16:00:50 Lozenge Dough Mixer: YOLANDA MEASUREMENT RESULTS: Intervals: Rate: 65 CT: 186 QRSD: 84 QT: 390 QTc: 405 Sealy: P: 39 CT: 186 QRS: 54 T: 61 INTERPRETIVE STATEMENTS: Normal sinus rhythm Normal ECG Compared to ECG 04/25/2018 11:16:43 No significant changes Electronically Signed On 07-30-18 17:08:49 CDT by Ten Ruth
[2018-07-30 17:11] LABS: ALT/SGPT 16 U/L (12-78); AST/SGOT 13 U/L (15-37); Albumin 3.1 g/dL (3.4-5.0); Alkaline Phosphatase 71 U/L (45-117); BUN Blood Urea Nitrogen 17 mg/dL (7-18); Bicarbonate 23 mmol/L (21-32); Bilirubin Direct 0.1 mg/dL (0-0.2); Bilirubin Total 0.4 mg/dL (0.2-1.0); Glucose Level 74 mg/dL (74-106); Magnesium 2.3 mg/dL (1.8-2.4); NT PRO-BNP 142 pg/mL (<450); Potassium 3.9 mmol/L (3.5-5.1); Sodium Level 139 mmol/L (136-145); Troponin (Emerg Dept Use Only) < 0.02 ng/mL (0.0-0.045)
--- NOTE | 2018-07-30 18:00 | ER ---
Nurse's Notes [facility] Name: Kei Raya Age: 77 yrs Sex: Male : 1940 Arrival Date: 07/30/2018 Time: 14:47 Bed 5 Private MD: Samm Kong Diagnosis: Acute embolism and thrombosis of unspecified deep veins of left proximal lower extremity Presentation: 07/30 14:50 Presenting complaint: Patient states: LLE swelling/pain x 1 day. Pt lives at [facility] in [place] and the MD ordered abx but pt continued to have increasing pain. Hx Alzheimer's. Transition of care: patient was not received from another setting of care. Onset of symptoms was July 29, 2018. Care prior to arrival: None. 14:50 Method Of Arrival: Wheelchair sv 14:50 Acuity: NILAM 3 sv 17:00 Risk Assessment: Do you want to hurt yourself or someone else? Patient reports no ph desire to harm self or others. Initial Sepsis Screen: Does the patient meet any 2 criteria? No. Patient's initial sepsis screen is negative. Does the patient have a suspected source of infection? No. Patient's initial sepsis screen is negative. Historical: - Allergies: 14:52 No Known Allergies; sv - PMHx: 14:52 Alzheimers; Gout; Hypertension; sv - PSHx: 14:52 Knee surgery; elbow; right foot; sv - Immunization history:: Adult Immunizations unknown. - Social history:: Smoking status: Patient/guardian denies using tobacco. - Ebola Screening: : No symptoms or risks identified at this time. Screenin:52 Abuse screen: Denies threats or abuse. Denies injuries from another. Nutritional ph screening: No deficits noted. Tuberculosis screening: No symptoms or risk factors identified. Fall Risk No fall in past 12 months (0 pts). Secondary diagnosis (15 points) dementia, IV access (20 points). Ambulatory Aid- None/Bed Rest/Nurse Assist (0 pts). Gait- Normal/Bed Rest/Wheelchair (0 pts) Mental Status- Overestimates/Forgets Limitations (15 pts.). Total Bedoya Fall Scale indicates High Risk Score (45 or more points). Fall prevention measures have been instituted. Side Rails Up X 2 Frequent Obs/Assessments Occuring Family Present and informed to notify staff if the need to leave the bedside As available patient and family educated on Fall Prevention Program and Strategies. Assessment: 15:00 General: Appears in no apparent distress. comfortable, well groomed, Behavior is calm, ph cooperative. Pain: Complains of pain in medial aspect of left thigh. Neuro: Level of Consciousness is awake, alert, obeys commands, Oriented to person, place. Cardiovascular: Capillary refill < 3 seconds in bilateral fingers Patient's skin is warm and dry. Cardiovascular: Denies chest pain, shortness of breath, Edema is 2+ to left lower thigh, left knee, left midcalf, left ankle and left foot. Respiratory: Airway is patent Respiratory effort is even, unlabored, Respiratory pattern is regular, symmetrical, Breath sounds are clear bilaterally. Derm: Skin is intact, Skin is pink, warm \T\ dry. Musculoskeletal: Circulation, motion, and sensation intact. Range of motion: intact in all extremities. 16:15 Reassessment: Patient appears in no apparent distress at this time. Patient and/or ph family updated on plan of care and expected duration. Pain level reassessed. Pt awake and alert, c/o pain in back of neck, ERP notified, see MAR. 19:15 General: Appears in no apparent distress. comfortable, Behavior is calm, cooperative, rr5 appropriate for age. Pain: Denies pain. Neuro: Level of Consciousness is awake, alert, obeys commands, Oriented to person, place. Cardiovascular: Capillary refill < 3 seconds in bilateral fingers Patient's skin is warm and dry. Respiratory: Airway is patent Respiratory effort is even, unlabored, Respiratory pattern is regular, symmetrical. Derm: Skin is intact, Skin is pink, warm \T\ dry. Musculoskeletal: Circulation, motion, and sensation intact. Range of motion: intact in all extremities, Swelling present in left leg. Vital Signs: 14:52 BP 103 / 64; Pulse 79; Resp 18; Temp 98; Pulse Ox 95% ; sv 16:00 BP 111 / 60; Pulse 69; Resp 18; Pulse Ox 99% on R/A; ph 16:15 Weight 95.25 kg; ph 17:00 BP 99 / 63; Pulse 65; Resp 18; Pulse Ox 95% on R/A; ph 18:00 BP 104 / 80; Pulse 70; Resp 16; Pulse Ox 100% on R/A; ph 19:01 BP 109 / 79; Pulse 68; Resp 18; Pulse Ox 98% on R/A; ph 19:15 BP 120 / 81; Pulse 71; Resp 16; Temp 97.9; Pulse Ox 98% on R/A; Pain 0/10; rr5 ED Course: 14:47 Patient arrived in ED. mr 14:47 Samm Kong MD is Private Physician. mr 14:52 Triage completed. sv 14:54 Arm band placed on. sv 14:57 Vangie Anderson, INDY is Primary Nurse. ph 15:07 Julian Man NP is PHCP. pm1 15:07 Jose Gibson MD is Attending Physician. pm1 15:36 Extremity Venous Uni Ltd US In Process Unspecified. EDMS 15:41 Radiology exam delayed due to lab results not completed at this time. (BUN/Creatinine). vm2 15:47 XRAY Chest (1 view) In Process Unspecified. EDMS 16:08 EKG done, by diagnostic technician. reviewed by Julian Man NP. sm3 16:16 Radiology exam delayed due to lab results not completed at this time. (BUN/Creatinine). vm2 16:20 Inserted saline lock: 20 gauge in right forearm, using aseptic technique. ph 16:59 No provider procedures requiring assistance completed. Patient admitted, IV remains in ph place. 17:00 Patient has correct armband on for positive identification. Placed in gown. Bed in low ph position. Call light in reach. quality assurance monitor chassis on. Pulse ox on. NIBP on. Door closed. Noise minimized. Warm blanket given. Pillow given. 17:59 Deniz Smith DO is Hospitalizing Provider. pm1 Administered Medications: 16:35 Drug: Lovenox 1 mg/kg Route: Sub-Q; Site: right lower abdomen; ph 17:15 Follow up: Response: No adverse reaction ph 16:45 Drug: [place] 5 mg-325 mg 1 tabs Route: PO; ph 17:15 Follow up: Response: No adverse reaction ph Outcome: 17:59 Decision to Hospitalize by Provider. pm1 19:58 Admitted to Tele accompanied by david, via stretcher, room 407, with chart, Report rr5 called to delfin 19:58 Condition: stable 19:58 Instructed on the need for admit. 20:06 Patient left the ED. rr5 Signatures: Dispatcher [employer] ED SeanKaren thompson, RN RN Spike, Mariela mr Vangie Anderson RN RN Julian Man, DAVID PRINTING AGENT pm1 Vandana Riojas 2 Candelaria Cali sm3 Prabhjot Chisholm, INDY RN rr5 Corrections: (The following items were deleted from the chart) 14:55 14:52 Pulse 79bpm; Resp 18bpm; Pulse Ox 95%; Temp 98F; sv sv 15:01 14:52 Pulse 79bpm; Resp 18bpm; Pulse Ox 95%; Temp 98F; sv sv 16:59 16:59 Reassessment: Patient appears in no apparent distress at this time. Patient ph and/or family updated on plan of care and expected duration. Pain level reassessed. Dr Smith at [facility] ph 19:02 19:01 BP 104 / 80; Pulse 70bpm; Resp 16bpm; Pulse Ox 100% RA; ph ph 19:32 19:15 Musculoskeletal: Circulation, motion, and sensation intact. Range of motion: rr5 intact in all extremities, Swelling present in right leg and left leg rr5
--- NOTE | 2018-07-30 18:00 | EDPHYS ---
Physician Documentation [facility] Name: Kei Raya Age: 77 yrs Sex: Male : 1940 Arrival Date: 07/30/2018 Time: 14:47 Bed 5 Private MD: Samm Kong ED Physician Jose Gibson HPI: 07/30 16:00 This 77 yrs old Male presents to ER via Wheelchair with complaints of Leg pm1 Swelling. 16:00 The patient presents with pain, that is acute, swelling. The complaints affect the pm1 medial aspect of left thigh and left quadriceps. Context: The problem was sustained at a penitentiary or assisted living facility, resulted from an unknown cause, Problem is a result from a previous injury: No. Onset: The symptoms/episode began/occurred this morning. Modifying factors: The symptoms are alleviated by nothing. the symptoms are aggravated by palpation. Associated signs and symptoms: Pertinent negatives calf tenderness, fever, numbness, tingling. Treatment prior to arrival includes: no previous treatment. Severity of symptoms: in the emergency department the symptoms are unchanged. The patient has not experienced similar symptoms in the past. halfway contacted patient's PCP and informed that he was having pain and swelling to left lower leg today. Patient was called in antibiotic but patient has not started medication. No chest pain or shortness of breath . Historical: - Allergies: 14:52 No Known Allergies; sv - PMHx: 14:52 Alzheimers; Gout; Hypertension; sv - PSHx: 14:52 Knee surgery; elbow; right foot; sv - Immunization history:: Adult Immunizations unknown. - Social history:: Smoking status: Patient/guardian denies using tobacco. - Ebola Screening: : No symptoms or risks identified at this time. ROS: 16:00 Constitutional: Negative for fever, chills, and weight loss, Eyes: Negative for injury, pm1 pain, redness, and discharge, ENT: Negative for injury, pain, and discharge, Neck: Negative for injury, pain, and swelling, Cardiovascular: Negative for chest pain, palpitations, and edema, Respiratory: Negative for shortness of breath, cough, wheezing, and pleuritic chest pain, Abdomen/GI: Negative for abdominal pain, nausea, vomiting, diarrhea, and constipation, Back: Negative for injury and pain, : Negative for injury, bleeding, discharge, and swelling. 16:00 Skin: Negative for injury, rash, and discoloration. 16:00 Neuro: Negative for headache, weakness, numbness, tingling, and seizure. 16:00 MS/extremity: Positive for pain, swelling, of the medial aspect of left thigh and left quadriceps, Negative for decreased range of motion, deformity. Exam: 16:00 Constitutional: This is a well developed, well nourished patient who is awake, alert, pm1 and in no acute distress. Head/Face: Normocephalic, atraumatic. Eyes: Pupils equal round and reactive to light, extra-ocular motions intact. Lids and lashes normal. Conjunctiva and sclera are non-icteric and not injected. Cornea within normal limits. Periorbital areas with no swelling, redness, or edema. ENT: Nares patent. No nasal discharge, no septal abnormalities noted. Tympanic membranes are normal and external auditory canals are clear. Oropharynx with no redness, swelling, or masses, exudates, or evidence of obstruction, uvula midline. Mucous membranes moist. Neck: Trachea midline, no thyromegaly or masses palpated, and no cervical lymphadenopathy. Supple, full range of motion without nuchal rigidity, or vertebral point tenderness. No Meningismus. Chest/axilla: Normal chest wall appearance and motion. Nontender with no deformity. No lesions are appreciated. Cardiovascular: Regular rate and rhythm with a normal S1 and S2. No gallops, murmurs, or rubs. Normal PMI, no JVD. No pulse deficits. Respiratory: Lungs have equal breath sounds bilaterally, clear to auscultation and percussion. No rales, rhonchi or wheezes noted. No increased work of breathing, no retractions or nasal flaring. Abdomen/GI: Soft, non-tender, with normal bowel sounds. No distension or tympany. No guarding or rebound. No evidence of tenderness throughout. Back: No spinal tenderness. No costovertebral tenderness. Full range of motion. 16:00 Musculoskeletal/extremity: Extremities: grossly normal except: noted in the left quadriceps: erythema, pain, swelling, tenderness. 16:00 Skin: Appearance: normal except for affected area, injury, abrasion(s), small abrasion noted, of the left waters. 16:00 Neuro: Orientation: to person, place, situation, Motor: is normal, moves all fours. Vital Signs: 14:52 BP 103 / 64; Pulse 79; Resp 18; Temp 98; Pulse Ox 95% ; sv 16:00 BP 111 / 60; Pulse 69; Resp 18; Pulse Ox 99% on R/A; ph 16:15 Weight 95.25 kg; ph 17:00 BP 99 / 63; Pulse 65; Resp 18; Pulse Ox 95% on R/A; ph 18:00 BP 104 / 80; Pulse 70; Resp 16; Pulse Ox 100% on R/A; ph 19:01 BP 109 / 79; Pulse 68; Resp 18; Pulse Ox 98% on R/A; ph 19:15 BP 120 / 81; Pulse 71; Resp 16; Temp 97.9; Pulse Ox 98% on R/A; Pain 0/10; rr5 MDM: 15:08 Patient medically screened. evette 17:47 Data reviewed: vital signs. Data interpreted: Pulse oximetry: on room air is 95 %. pm1 Interpretation: normal. Counseling: I had a detailed discussion with the patient and/or guardian regarding: the historical points, exam findings, and any diagnostic results supporting the discharge/admit diagnosis, lab results, radiology results, the need for further work-up and treatment in the hospital. 17:54 Physician consultation: Deniz Smith DO was called at 17:54, was contacted at 17:54, pm1 regarding admission, patient's condition, and will see patient in ED. 07/30 15:20 Order name: Basic Metabolic Panel; Complete Time: 17:46 pm1 07/30 15:20 Order name: CBC with Diff; Complete Time: 16:57 pm1 07/30 15:20 Order name: LFT's; Complete Time: 17:46 pm1 07/30 15:20 Order name: Magnesium; Complete Time: 17:46 pm1 07/30 15:20 Order name: NT PRO-BNP; Complete Time: 17:46 pm1 07/30 15:20 Order name: PT-INR; Complete Time: 17:05 pm1 07/30 15:16 Order name: Extremity Venous Uni Ltd US; Complete Time: 16:29 pm1 07/30 15:20 Order name: Troponin (emerg Dept Use Only); Complete Time: 17:46 pm1 07/30 15:20 Order name: XRAY Chest (1 view); Complete Time: 16:29 pm1 07/30 15:20 Order name: Blood Culture Adult (2) pm1 07/30 15:20 Order name: Procalcitonin; Complete Time: 17:46 pm1 07/30 15:20 Order name: Lactate; Complete Time: 17:46 pm1 07/30 20:05 Order name: Lactate Sepsis 2 HR Follow-up; Complete Time: 00:14 EDMS 07/30 15:20 Order name: EKG; Complete Time: 15:25 pm1 07/30 15:20 Order name: Cardiac monitoring; Complete Time: 17:14 pm1 07/30 15:20 Order name: EKG - Nurse/Tech; Complete Time: 17:14 pm1 07/30 15:20 Order name: IV Saline Lock; Complete Time: 17:14 pm1 07/30 15:20 Order name: Labs collected and sent; Complete Time: 17:15 pm1 07/30 15:20 Order name: O2 Per Protocol; Complete Time: 17:15 pm1 07/30 15:20 Order name: O2 Sat Monitoring; Complete Time: 17:15 pm1 Administered Medications: 16:35 Drug: Lovenox 1 mg/kg Route: Sub-Q; Site: right lower abdomen; ph 17:15 Follow up: Response: No adverse reaction ph 16:45 Drug: [place] 5 mg-325 mg 1 tabs Route: PO; ph 17:15 Follow up: Response: No adverse reaction ph Disposition: 07/31 06:46 Co-signature as Attending Physician, Jose Gibson MD I agree with the assessment and evette plan of care. Disposition: 07/30/18 17:59 Hospitalization ordered by Deniz Simth for Observation. Preliminary diagnosis is Acute embolism and thrombosis of unspecified deep veins of left proximal lower extremity. - Bed requested for Telemetry/MedSurg (observation). - Status is Observation. rr5 - Condition is Stable. - Problem is new. - Symptoms have improved. UTI on Admission? No Signatures: Dispatcher [employer] EDMS Leslye Scott Stephanie, RN RN sv Woody, Diana, RN RN dw Anderson, Corey, MD MD cha Hall, Patricia, RN RN ph Marinas, Patrick, DAVID FRONT EDGER pm1 Prabhjot Chisholm, RN RN rr5 Corrections: (The following items were deleted from the chart) 07/30 17:27 15:37 Chest For PE Angio+CT.RAD.BRZ ordered. EDMS EDMS 18:43 17:59 Hospitalization Ordered by Deniz Smith DO for Observation. Preliminary bd diagnosis is Acute embolism and thrombosis of unspecified deep veins of left proximal lower extremity. Bed requested for Telemetry/MedSurg (observation). Status is Observation. Condition is Stable. Problem is new. Symptoms have improved. UTI on Admission? No. pm1 18:53 18:43 07/30/2018 17:59 Hospitalization Ordered by [place] Pedro for Observation. dw Preliminary diagnosis is Acute embolism and thrombosis of unspecified deep veins of left proximal lower extremity. Bed requested for Telemetry/MedSurg (observation). Status is Observation. Condition is Stable. Problem is new. Symptoms have improved. UTI on Admission? No. bd 20:06 18:53 07/30/2018 17:59 Hospitalization Ordered by [place] Luis BENJAMIN for Observation. rr5 Preliminary diagnosis is Acute embolism and thrombosis of unspecified deep veins of left proximal lower extremity. Bed requested for Telemetry/MedSurg (observation). Status is Observation. Condition is Stable. Problem is new. Symptoms have improved. UTI on Admission? No. dw
--- NOTE | 2018-07-30 18:22 | P.HP ---
Certification for Inpatient Patient admitted to: Observation With expected LOS: <2 Midnights Patient will require the following post-hospital care: None Practitioner: I am a practitioner with admitting privileges, knowledge of patient current condition, hospital course, and medical plan of care. Services: Services provided to patient in accordance with Admission requirements found in Title 42 Section 412.3 of the Code of Federal Regulations Patient History Date of Service: 07/30/18 Primary Care Provider: Dr. Suazo([facility]) Reason for admission: Left lower extremity edema History of Present Illness: 77-year-old male presented to the emergency room from the retirement after increasing left lower extremity swelling and edema. Patient has history of hypertension, Alzheimer's dementia, neuropathy and gout. Patient is mainly sedentary. He he sleeps in a recliner and has minimal movement. Patient requires assistance for mobility. Over the last day he has been having increasing swelling to the left lower extremity. Patient had been started on antibiotic therapy. Swelling did not improve. He came to the ER for further evaluation. In the ER patient evaluated. White count 7.8, hemoglobin 13.5. Pro calcitonin unremarkable. Troponin unremarkable. Creatinine 1.55 with a GFR 44. Chest x- ray unremarkable. EKG showed normal sinus rhythm. Venous Doppler of the lower extremity showed DVT. This is new. Patient was given Lovenox. Patient was admitted for observation. Allergies No Known Allergies Allergy (Verified 12/24/13 05:58) Home medications list reviewed: Yes Home Medications: Allopurinol 300 mg PO DAILY 12/20/13 Diclofenac Na [Voltaren] 50 mg PO BID 12/20/13 Donepezil HCl 10 mg PO DAILY 12/20/13 Gemfibrozil 600 mg PO BID 12/20/13 Smz./Tmp. [Bactrim Ds 800 MG/160 MG*] 1 tab PO BID #20 tab 12/28/13 - Past Medical/Surgical History Diabetic: No -: Neuropathy -: Hypertension -: History of a right great toe osteomyelitis -: Gout -: Chronic renal disease, stage III -: Cyst Removal -: Appendectomy -: Knee surgery -: R foot sx Psychosocial/ Personal History: Patient lives at the retirement. He has been there for over 2-1/2 years. He is currently . Niece has medical power of research attorney. - Family History Family History: Reviewed- Non-Contributory - Social History Smoking Status: Never smoker Alcohol use: Yes CD- Drugs: No Caffeine use: Yes Place of Residence: [facility] Review of Systems General: As per HPI Eyes: Unremarkable ENT: Unremarkable Respiratory: Unremarkable Cardiovascular: Unremarkable Gastrointestinal: Unremarkable Genitourinary: Unremarkable Musculoskeletal: Neck Pain, Pedal edema, As per HPI Integumentary: As per HPI Neurological: Unremarkable Lymphatics: Unremarkable Physical Examination - Physical Exam General: Alert, In no apparent distress, Cooperative, Demented (Mild) HEENT: Atraumatic, Normocephalic, Mucous membr. moist/pink Neck: Supple, No Thyromegaly Respiratory: Clear to auscultation bilaterally, Normal air movement Cardiovascular: Normal pulses, Regular rate/rhythm Gastrointestinal: Normal bowel sounds, Soft and benign, Non-distended, No tenderness, No masses, No rebound, No guarding Musculoskeletal: No warmth Integumentary: Other (Left lower extremity edema noted below the knee. No significant erythema. No significant pain.) Neurological: Normal speech, Normal strength at 5/5 x4 extr, Normal tone, Normal affect, Dementia (Mild) - Studies Laboratory Data (last 24 hrs) 07/30/18 16:25: PT 12.4, INR 1.05 07/30/18 16:25: WBC 7.8, Hgb 13.5 L, Hct 40.0, Plt Count 204 07/30/18 16:25: Sodium 139, Potassium 3.9, BUN 17, Creatinine 1.55 H, Glucose 74 , Magnesium 2.3, Total Bilirubin 0.4, AST 13 L, ALT 16, Alkaline Phosphatase 71 Assessment and Plan - Plan Impression: Left lower extremity edema secondary to acute left lower extremity DVT Hypertension Chronic renal disease, stage III Alzheimer's dementia Gout Neuropathy Plan: Left lower extremity edema secondary to acute left lower extremity DVT: Patient will be admitted for observation. Will start Lovenox at 1 milligram/ kilogram subcu twice daily. Will monitor on telemetry. Will obtain echocardiogram to further evaluate. Will have adoption social worker provide coupon to help initiate chronic anti coagulation therapy at discharge. Will need to determine what the patient may be able to afford. Either Eliquis or Xarelto will be considered. Risks and benefits addressed with niece who has medical power of research attorney. Will continue monitor lab closely. Will physical therapy assess ambulation. DVT likely related to his sedentary lifestyle. Patient will need to be treated for at least 3 months. Anticipate discharge tomorrow. Hypertension: Blood pressure slightly low. Will hold blood pressure medication at this time. Will monitor off medication. Chronic renal disease, stage III: Suspect this is chronic. Will start low- dose IV fluids. Will hold lisinopril. Will recheck lab tomorrow. Alzheimer's dementia: Will need to obtain and restart home medication. Gout: Restart home medication. Neuropathy: Patient reports some pain to the neck. Likely neuropathy related. Will provide tramadol. Recommend no further use of nonsteroidal anti- inflammatories due to his chronic renal disease and since the patient will be on chronic anti coagulation therapy for 3 months. Discharge Plan: [facility] Plan to discharge in: 24 Hours - Advance Directives Does patient have a Living Will: No Does patient have a Durable POA for Healthcare: Yes - Code Status/Comfort Care Code Status Assessed: Yes (Patient is DNR) Time Spent Managing Pts Care (In Minutes): 55
[2018-07-30] MEDS ORDERED: ACETAMINOPHEN 650MG/RECT SUPP RECT PRN (20:24)
[2018-07-30] MEDS ORDERED: HYDRALAZINE HCL 20 MG/ML VIAL IV PRN (20:24)
[2018-07-30] MEDS ORDERED: ACETAMINOPHEN 500 MG TAB PO PRN (20:24)
[2018-07-30] MEDS ORDERED: ONDANSETRON 4 MG/2 ML VIAL IV PRN (20:24)
[2018-07-30] MEDS ORDERED: NA CHLORIDE 0.9% 1,000 ML IV SCH (20:24)
[2018-07-30 20:32] VITALS: BMI 26.6
[2018-07-30] MEDS ORDERED: ENOXAPARIN 100 MG/ML SYR SQ SCH (21:00)
[2018-07-30 21:19] LABS: Thyroid Stimulating Hormone 2.57 uIU/mL (0.360-3.740)
[2018-07-30] MEDS: TRAMADOL HCL 50 MG TAB PO PRN (21:36)
[2018-07-31 04:59] LABS: Absolute Lymphocytes (CBC) 2.2 K/uL (0.7-4.9); Absolute Monocytes 0.5 K/uL (0.1-1.3); Absolute Neutrophil 3.6 K/uL (1.8-8.0); Basophils % 0.7 % (0-1.3); Eosinophils % 4.7 % (0-4.4); Hematocrit 38.4 % (39.6-49.0); Lymphocytes % 32.7 % (15.3-44.8); Monocytes % 8.1 % (3.3-12.3); RBC Red Blood Cell Count 4.11 M/uL (4.33-5.43)
[2018-07-31 05:18] LABS: BUN Blood Urea Nitrogen 17 mg/dL (7-18); Bicarbonate 26 mmol/L (21-32); CKMB Creatine Kinase MB < 1.0 ng/mL (0.3-3.6); Creatine Phosphokinase 63 U/L (39-308); Glucose Level 100 mg/dL (74-106); HDL Cholesterol 29 mg/dL (40-60); LDL Cholesterol, Calculated 107 (<130); Magnesium 2.3 mg/dL (1.8-2.4); Potassium 3.7 mmol/L (3.5-5.1); Sodium Level 142 mmol/L (136-145); Troponin I < 0.02 ng/mL (0.0-0.045)
[2018-07-31] MEDS ORDERED: ENOXAPARIN 100 MG/ML SYR SQ SCH (06:00)
[2018-07-31 06:06] LABS: Urine Appearance CLEAR; Urine Bilirubin NEGATIVE (NEG); Urine Blood NEGATIVE (NEG); Urine Color YELLOW; Urine Glucose NEGATIVE (NEG); Urine Protein NEGATIVE (NEG); Urine Specific Gravity 1.015 (1.005-1.030); Urine Urobilinogen 0.2 mg/dL (0.2-1.0)
[2018-07-31 06:08] LABS: Urine Microscopic Reflex NO UMIC
[2018-07-31] MEDS ORDERED: POTASSIUM CL SA 10 MEQ TAB PO ONE (07:39)
[2018-07-31] MEDS ORDERED: ALLOPURINOL 100 MG TAB PO SCH (09:00)
--- NOTE | 2018-07-31 09:08 | P.DS ---
Admission Date: 07/30/18 Discharge Date: 07/31/18 Primary Care Provider: Dr. Suazo([facility]) Disposition: TRANSFER TO LONG-TERM Discharge Condition: GOOD Reason for Admission: Left lower extremity edema Consultations: none Procedures: ECHO: Obtained prior to discharge Venous doppler: COMPARISON: EXT VENOUS UNI LTD dated 12/19/2013 FINDINGS: Left lower extremity venous system was interrogated with Doppler technique. Thrombus is noted in the left common femoral vein to the posterior tibial vein. IMPRESSION: Positive for left lower extremity DVT. Medical Problem List: Left lower extremity edema secondary to acute left lower extremity DVT Hypertension Chronic renal disease, stage III Alzheimer's dementia Gout Neuropathy Brief History of Present Illness: 77-year-old male presented to the emergency room from the correction after increasing left lower extremity swelling and edema. Patient has history of hypertension, Alzheimer's dementia, neuropathy and gout. Patient is mainly sedentary. He he sleeps in a recliner and has minimal movement. Patient requires assistance for mobility. Over the last day he has been having increasing swelling to the left lower extremity. Patient had been started on antibiotic therapy. Swelling did not improve. He came to the ER for further evaluation. In the ER patient evaluated. White count 7.8, hemoglobin 13.5. Pro calcitonin unremarkable. Troponin unremarkable. Creatinine 1.55 with a GFR 44. Chest x- ray unremarkable. EKG showed normal sinus rhythm. Venous Doppler of the lower extremity showed DVT. This is new. Patient was given Lovenox. Patient was admitted for observation. Hospital Course: Patient presented with left lower extremity swelling. Patient found to have left lower extremity DVT. This is likely related to his sedentary lifestyle. Patient is at a correction. He is mostly immobile. Anti coagulation was initiated. Echocardiogram performed. Improvement in swelling noted at discharge. At discharge he will continue with Eliquis 10 mg twice daily for 7 days then 5 mg twice daily for duration of 3 months. Education on Eliquis with risk and benefit addressed in detail. Patient and niece who has power of assistant district attorney understands this. Recommend a follow-up PCP within 1 week to follow up this hospitalization. Prior to discharge will make sure that the patient will be able to afford his medication. Patient with underlying hypertension. Upon evaluation blood pressure was low. Lisinopril was discontinued. Blood pressure remained stable off medication. Recommend to monitor blood pressures daily. If his blood pressure remains above 140/90 consistently then lisinopril may be able to be restarted but at a lower dose. This can be further addressed by his PCP. Echocardiogram performed prior to discharge. This will need to be followed up by his PCP. Will need to assess for underlying CHF. Patient with chronic renal disease, stage III. Lisinopril was discontinued. Renal function slightly improved off lisinopril. Recommend to recheck lab-BMP in 1-2 weeks to follow his progress. Recommend no further use of nonsteroidal anti-inflammatories. Future medications will need be renally dose. Will need to consider nephrology evaluation as an outpatient if this persists. Patient with underlying Alzheimer's dementia. This has remained stable. Patient will continue with his medication Namzaric 28/10 mg daily. Recommend to follow up with neurology as directed. Patient with gout. Patient will continue with allopurinol 100 mg daily. Patient with history of COPD. Patient takes albuterol as needed for shortness of breath. If this is more persistent in the future, then will need to consider maintenance therapy. This can be further addressed by his PCP. Patient with mild scratches to the left lower extremity. Bactroban ointment will be provided to be used once daily for 7 days. Vital Signs/Physical Exam: Temp Pulse Resp BP Pulse Ox 97.9 F 62 18 103/59 L 97 07/31/18 08:00 07/31/18 08:00 07/31/18 08:00 07/31/18 08:00 07/31/18 08:00 General: Alert, In no apparent distress, Oriented x3, Cooperative HEENT: Atraumatic Neck: Supple Respiratory: Clear to auscultation bilaterally, Normal air movement Cardiovascular: Normal pulses, Regular rate/rhythm Gastrointestinal: Normal bowel sounds, Soft and benign, Non-distended, No tenderness, No masses, No rebound, No guarding Musculoskeletal: No tenderness Integumentary: No erythema, No warmth, No cyanosis, Other (Swelling to the left lower extremity significantly improved. Mild scratches noted to the left lower extremity. No open ulcers noted.) Neurological: Normal speech, Normal strength at 5/5 x4 extr, Normal tone, Normal affect Laboratory Data at Discharge: WBC 6.7 K/uL (4.3-10.9) D 07/31/18 04:17 Hgb 12.9 g/dL (13.6-17.9) L 07/31/18 04:17 Hct 38.4 % (39.6-49.0) L 07/31/18 04:17 Plt Count 176 K/uL (152-406) 07/31/18 04:17 PT 12.4 SECONDS (9.5-12.5) 07/30/18 16:25 INR 1.05 07/30/18 16:25 Sodium 142 mmol/L (136-145) 07/31/18 04:06 Potassium 3.7 mmol/L (3.5-5.1) 07/31/18 04:06 BUN 17 mg/dL (7-18) 07/31/18 04:06 Creatinine 1.41 mg/dL (0.55-1.3) H 07/31/18 04:06 Glucose 100 mg/dL (74-106) 07/31/18 04:06 Magnesium 2.3 mg/dL (1.8-2.4) 07/31/18 04:06 Total Bilirubin 0.4 mg/dL (0.2-1.0) 07/30/18 16:25 AST 13 U/L (15-37) L 07/30/18 16:25 ALT 16 U/L (12-78) 07/30/18 16:25 Alkaline Phosphatase 71 U/L (45-117) 07/30/18 16:25 Troponin I < 0.02 ng/mL (0.0-0.045) 07/31/18 04:06 Triglycerides 141 mg/dL (<150) 07/31/18 04:06 Cholesterol 164 mg/dL (<200) 07/31/18 04:06 HDL Cholesterol 29 mg/dL (40-60) L 07/31/18 04:06 Cholesterol/HDL Ratio 5.66 07/31/18 04:06 Home Medications: Albuterol Neb [Proventil 0.083% Neb Soln] 2.5 mg IH Q8HP PRN 07/30/18 Allopurinol 100 mg PO DAILY 07/30/18 Bismuth Subsalicylate [Bismuth] 2 tab PO Q4HP PRN 07/30/18 Memantine HCl/Donepezil HCl [Namzaric 28 mg-10 mg Capsule] 1 tab PO DAILY Terbinafine HCl [Lamisil At] 1 dion TP DAILYPRN PRN 07/30/18 Thiamine HCl [Vitamin B-1*] 100 mg PO DAILY 07/30/18 Apixaban [Eliquis] 5 mg PO SEECOM #70 tablet 07/31/18 Mupirocin Oint [Bactroban 2% Ointment] 8 appl TOP BID #1 tube 07/31/18 New Medications: Apixaban [Eliquis] 5 mg PO SEECOM #70 tablet Mupirocin Oint [Bactroban 2% Ointment] 8 appl TOP BID #1 tube Patient Discharge Instructions: 1. Follow up with his PCP within 1 week to follow up this hospitalization. 2. Patient presented with left lower extremity swelling. Patient found to have left lower extremity DVT. This is likely related to his sedentary lifestyle. Patient is at a correction. He is mostly immobile. Anti coagulation was initiated. Echocardiogram performed. Improvement in swelling noted at discharge. At discharge he will continue with Eliquis 10 mg twice daily for 7 days then 5 mg twice daily for duration of 3 months. Education on Eliquis with risk and benefit addressed in detail. Patient and niece who has power of assistant district attorney understands this. Recommend a follow-up PCP within 1 week to follow up this hospitalization. Prior to discharge will make sure that the patient will be able to afford his medication. 3. Patient with underlying hypertension. Upon evaluation blood pressure was low. Lisinopril was discontinued. Blood pressure remained stable off medication. Recommend to monitor blood pressures daily. If his blood pressure remains above 140/90 consistently then lisinopril may be able to be restarted but at a lower dose. This can be further addressed by his PCP. Echocardiogram performed prior to discharge. This will need to be followed up by his PCP. Will need to assess for underlying CHF. 4. Patient with chronic renal disease, stage III. Lisinopril was discontinued. Renal function slightly improved. Recommend to recheck lab-BMP in 1-2 weeks to follow his progress. Recommend no further use of nonsteroidal anti-inflammatories. Future medications will need be renally dose. Will need to consider nephrology evaluation as an outpatient if this persists. 5. Patient with underlying Alzheimer's dementia. This has remained stable. Patient will continue with his medication Namzaric 28/10 mg daily. Recommend to follow up with neurology as directed. 6. Patient with gout. Patient will continue with allopurinol 100 mg daily. 7. Patient with history of COPD. Patient takes albuterol as needed for shortness of breath. If this is more persistent in the future, then will need to consider maintenance therapy. This can be further addressed by his PCP. 8. Patient with mild scratches to the left lower extremity. Bactroban ointment will be provided to be used once daily for 7 days. Diet: AHA Activity: Fall precautions Time spent managing pt's care (in minutes): 55
[2018-07-31 09:17] VITALS: O2SAT 100
[2018-07-31] MEDS: TRAMADOL HCL 50 MG TAB PO PRN ×2 (10:27→13:31)
[2018-07-31 13:27] VITALS: BP 114/57; TEMP 97
--- NOTE | 2018-07-31 17:37 | ECHO ---
HEIGHT: 6 ft 1 in WEIGHT: 202 lb 6.4 oz DATE OF STUDY: 07/31/[address]: Deniz Smith DO 2-DIMENSIONAL: YES M.MODE: YES DOPPLER: YES COLOR FLOW: YES TDS: PORTABLE: DEFINITY: BUBBLE STUDY: DIAGNOSIS: LLE DVT, HISTORY OF HYPERTENSION. CARDIAC HISTORY: CATHERIZATION: NO SURGERY: NO PROSTHETIC VALVE: NO PACEMAKER: NO MEASUREMENTS (cm) DIASTOLIC (NORMALS) SYSTOLIC (NORMALS) IVSd 1.1 (0.6-1.2) LA Diam 3.5 (1.9-4.0) LVEF 68% LVIDd 4.8 (3.5-5.7) LVIDs 3.0 (2.0-3.5) %FS 38% LVPWd 1.1 (0.6-1.2) Ao Diam 2.4 (2.0-3.7) 2 DIMENSIONAL ASSESSMENT: RIGHT ATRIUM: NORMAL LEFT ATRIUM: NORMAL RIGHT VENTRICLE: NORMAL LEFT VENTRICLE: NORMAL TRICUSPID VALVE: NORMAL MITRAL VALVE: NORMAL PULMONIC VALVE: NORMAL AORTIC VALVE: NORMAL PERICARDIAL EFFUSION: NONE AORTIC ROOT: NORMAL LEFT VENTRICULAR WALL MOTION: NORMAL DOPPLER/COLOR FLOW: MILD TRICUSPID REGURGITATION. NORMAL RIGHT VENTRICULAR SYSTOLIC PRESSURE. COMMENTS: NORMAL TWO DIMENSIONAL ECHOCARDIOGRAM. MILD TRICUSPID REGURGITATION. TECHNOLOGIST: VIRIDIANA BULLARD
== END 2018-07-31 15:38 ==
LOC: ER 14:45 → ERHOLD 18:09 → 4TH 19:59
PROVIDERS: ADMIT Family Medicine; ATTEND Family Medicine
DX: I82.412 Acute embolism and thrombosis of left femoral vein (principal); I82.442 Acute embolism and thrombosis of left tibial vein; I12.9 Hypertensive chronic kidney disease with stage 1 through stage 4 chronic kidney disease, or unspecified chronic kidney disease; N18.3 Chronic kidney disease, stage 3 (moderate); G30.9 Alzheimer's disease, unspecified; F02.80 Dementia in other diseases classified elsewhere, unspecified severity, without behavioral disturbance, psychotic disturbance, mood disturbance, and anxiety; M10.9 Gout, unspecified; J44.9 Chronic obstructive pulmonary disease, unspecified
CPT/HCPCS: 93005; 93306; 87040 ×2; 85025 ×2; 80048 ×2; 36415; 83735 ×2; 82550; 85610; 80061; 80076; 83605 ×2; 84443; 81003; 84484 ×2; 82553; 84439; 84145; 83880; 71045; 93971; 96372; 99285; J1650 ×2; J7030; G0378 ×2

== ENCOUNTER 2018-08-01 07:47 | Emergency (ER) | payer OTHER ==
--- OUTSIDE RECORDS SUMMARY | 2018-08-01 07:49 | XMS REPORT ---
:1940 [facility] Address [address] [place] [address] Dr. Mcguire[address] [place] [address] Care Team Providers Name Role Phone Unavailable Unavailable Unavailable Problems This patient has no known problems. Allergies, Adverse Reactions, Alerts This patient has no known allergies or adverse reactions. Medications This patient has no known medications.
--- NOTE | 2018-08-01 09:33 | RAD REPORT ---
EXAM DESCRIPTION: US - Extremity Venous Uni Ltd - 08/01/2018 9:25 am CLINICAL HISTORY: Left leg DVT, left leg pain and swelling COMPARISON: Previous study July 30, 2018 TECHNIQUE: Real-time sonographic evaluation of the right lower extremity deep venous systems was per formed. FINDINGS: Thrombus is again identified in the common femoral vein, superficial femoral vein and popl iteal vein. Flow is identifiable in the posterior tibial vein on today's examination as well as minim al or trickle flow in the popliteal vein. IMPRESSION: Extensive left leg DVT is still identifiable in the common femoral and superficial femor al deep veins. On today's examination trickle flow was seen in the popliteal vein which is still partially thrombose d. Flow is identifiable in the posterior tibial vein.
[2018-08-01] MEDS ORDERED: HYDROCODONE/APAP 5/325 MG TAB ONE (11:03)
--- NOTE | 2018-08-01 11:09 | ER ---
Nurse's Notes [facility] Name: Kei Raya Age: 77 yrs Sex: Male : 1940 Arrival Date: 08/01/2018 Time: 07:54 Bed 18 [facility] MD: Diagnosis: Other venous embolism and thrombosis Presentation: 08/01 07:54 Presenting complaint: EMS states: left knee pain and swelling. EMS reports pt was aa5 diagnosed with DVT and is currently taking Eliquis. Transition of care: patient was received from another setting of care (long-term care facility), [facility] in [place], [place]. Onset of symptoms was August 01, 2018. Risk Assessment: Do you want to hurt yourself or someone else? Unable to obtain. Initial Sepsis Screen: Does the patient meet any 2 criteria? No. Patient's initial sepsis screen is negative. Does the patient have a suspected source of infection? No. Patient's initial sepsis screen is negative. Care prior to arrival: None. 07:54 Method Of Arrival: EMS: [facility] aa5 07:54 Acuity: NILAM 3 aa5 Historical: - Allergies: 07:56 No Known Allergies; aa5 - Home Meds: 07:57 allopurinol 100 mg Oral tab 1 tab once daily [Active]; mupirocin topical topical aa5 [Active]; Eliquis oral 10mg oral [Active]; - PMHx: 07:56 Alzheimers; Gout; Hypertension; DVT; aa5 - PSHx: 07:56 Knee surgery; elbow; right foot; aa5 - Immunization history:: Adult Immunizations unknown. - Social history:: Smoking status: unknown. - Ebola Screening: : No symptoms or risks identified at this time. Screenin:49 Abuse screen: Denies threats or abuse. Denies injuries from another. Nutritional jl7 screening: No deficits noted. Tuberculosis screening: No symptoms or risk factors identified. 09:00 Fall Risk No fall in past 12 months (0 pts). Secondary diagnosis (15 points) jl7 Alzheimer's, dementia, impaired mobility, No IV (0 pts). Ambulatory Aid- None/Bed Rest/Nurse Assist (0 pts). Gait- Weak (10 pts.). Mental Status- Overestimates/Forgets Limitations (15 pts.). Total Bedoya Fall Scale indicates High Risk Score (45 or more points). Fall prevention measures have been instituted. Side Rails Up X 2 Placed Close to Nursing Station Frequent Obs/Assessments Occuring Family Present and informed to notify staff if the need to leave the bedside As available patient and family educated on Fall Prevention Program and Strategies. Assessment: 08:35 Reassessment: at bedside evaluating pt and educating pt and pt family on sg medication use and care at home as well as POC for the emergency room visit. 08:49 General: Appears in no apparent distress. comfortable, Behavior is calm, cooperative, jl7 appropriate for age. Pain: Complains of pain in left knee Pain began 2-3 days ago. Is continuous. Neuro: Level of Consciousness is awake, alert, obeys commands. Cardiovascular: Patient's skin is warm and dry. Respiratory: Airway is patent Respiratory effort is even, unlabored, Respiratory pattern is regular, symmetrical. Derm: Skin is pink, warm \T\ dry. Musculoskeletal: Swelling present in left knee. 09:30 Reassessment: Patient appears in no apparent distress at this time. No changes from jl7 previously documented assessment. Patient and/or family updated on plan of care and expected duration. Pain level reassessed. Patient is alert, oriented x 3, equal unlabored respirations, skin warm/dry/pink. 10:35 Reassessment: Patient appears in no apparent distress at this time. No changes from jl7 previously documented assessment. Patient and/or family updated on plan of care and expected duration. Pain level reassessed. Patient is alert, oriented x 3, equal unlabored respirations, skin warm/dry/pink. Pt c/o continued left knee pain, ERD notified, see MAR for orders. Vital Signs: 07:56 BP 123 / 71; Pulse 76; Resp 16 S; Temp 98.3(TE); Pulse Ox 100% on R/A; aa5 09:42 BP 114 / 72; Pulse 75; Resp 16 S; Pulse Ox 99% on R/A; jl7 10:56 BP 110 / 56; Pulse 76; Resp 16 S; Pulse Ox 100% on R/A; jl7 11:31 BP 118 / 68; Pulse 72; Resp 16 S; Pulse Ox 100% on R/A; jl7 ED Course: 07:54 Patient arrived in ED. aa5 07:54 Arm band placed on. aa5 07:55 Nayan Chang MD is Attending Physician. gs 07:55 Triage completed. aa5 07:59 Patient has correct armband on for positive identification. Bed in low position. Call 5 light in reach. Side rails up X2. Adult w/ patient. Warm blanket given. Pillow given. Pulse ox on. NIBP on. 08:11 Transfer initiated with Mindy at the [facility] transfer center. eb 08:21 Meri Santana RN is Primary Nurse. jl7 08:[address] Cruz the vascular surgeon plant protection officer for [facility] with Dr. Chang for eb patient transfer consultation. 09:09 US Extremity Venous Unilateral Ltd In Process Unspecified. EDMS 10:25 Initial lab(s) drawn, by me, sent to lab. [facility] 10:25 Uric Acid Sent. [facility] 11:33 No provider procedures requiring assistance completed. Patient did not have IV access jl7 during this emergency room visit. Administered Medications: 10:54 Drug: [place] 5 mg-325 mg 1 tabs Route: PO; jl7 11:32 Follow up: Response: No adverse reaction jl7 Outcome: 11:08 Discharge ordered by MD. 11:33 Discharged to home via wheelchair, with family. jl7 11:33 Condition: stable 11:33 Discharge instructions given to patient, family, Instructed on discharge instructions, follow up and referral plans. medication usage, Demonstrated understanding of instructions, follow-up care, medications, Prescriptions given X 1. 11:33 Patient left the ED. jl7 Signatures: Dispatcher [employer] EDNJ Vinicius Olson RN RN Nighat Spencer RN RN aa5 Martinez, Maria [facility] Meri Santana RN RN jl7 Nayan Chang MD MD gs Botello, Elizabeth eb Corrections: (The following items were deleted from the chart) 08:21 08:11 Transfer initiated with Sarah at the [facility] transfer center. eb eb
--- NOTE | 2018-08-01 11:09 | EDPHYS ---
Physician Documentation [facility] Name: Kei Raya Age: 77 yrs Sex: Male : 1940 Arrival Date: 08/01/2018 Time: 07:54 Bed 18 Private MD: ED Physician Nayan Chang HPI: 08/01 10:56 This 77 yrs old Male presents to ER via EMS with complaints of Knee Pain. gs 10:56 The patient presents with pain, that is acute. The complaints affect the left gs quadriceps, left knee and left waters. Onset: The symptoms/episode began/occurred gradually. Associated signs and symptoms: Pertinent negatives rash, warmth, weakness. Severity of symptoms: At their worst the symptoms were severe, in the emergency department the symptoms are unchanged. The patient has not experienced similar symptoms in the past. The patient has been recently been admitted at [facility], was discharged earlier this week. Historical: - Allergies: 07:56 No Known Allergies; aa5 - Home Meds: 07:57 allopurinol 100 mg Oral tab 1 tab once daily [Active]; mupirocin topical topical aa5 [Active]; Eliquis oral 10mg oral [Active]; - PMHx: 07:56 Alzheimers; Gout; Hypertension; DVT; aa5 - PSHx: 07:56 Knee surgery; elbow; right foot; aa5 - Immunization history:: Adult Immunizations unknown. - Social history:: Smoking status: unknown. - Ebola Screening: : No symptoms or risks identified at this time. ROS: 10:56 All other systems are negative. gs Exam: 10:56 Eyes: Pupils equal round and reactive to light, extra-ocular motions intact. Lids and gs lashes normal. Conjunctiva and sclera are non-icteric and not injected. Cornea within normal limits. Periorbital areas with no swelling, redness, or edema. Chest/axilla: Normal chest wall appearance and motion. Nontender with no deformity. No lesions are appreciated. Cardiovascular: Regular rate and rhythm with a normal S1 and S2. No gallops, murmurs, or rubs. Normal PMI, no JVD. No pulse deficits. Respiratory: Lungs have equal breath sounds bilaterally, clear to auscultation and percussion. No rales, rhonchi or wheezes noted. No increased work of breathing, no retractions or nasal flaring. Abdomen/GI: Soft, non-tender, with normal bowel sounds. No distension or tympany. No guarding or rebound. No evidence of tenderness throughout. Back: No spinal tenderness. No costovertebral tenderness. Full range of motion. 10:56 Constitutional: The patient appears alert, awake. 10:56 Musculoskeletal/extremity: Pulses: are normal with no appreciated deficits, Edema, 2+ to the left upper thigh, left lower thigh, left knee, left midcalf, left ankle and left foot is noted, Sensation intact. Joints: the left knee displays swelling, no warmth or erythema, DVT Exam: no erythema, no increased warmth, pain, swelling, tenderness, positive Homans' sign noted on exam. 10:56 Skin: cellulitis, is not appreciated. 10:56 Neuro: Exam negative for acute changes, Orientation: is normal. Vital Signs: 07:56 BP 123 / 71; Pulse 76; Resp 16 S; Temp 98.3(TE); Pulse Ox 100% on R/A; aa5 09:42 BP 114 / 72; Pulse 75; Resp 16 S; Pulse Ox 99% on R/A; jl7 10:56 BP 110 / 56; Pulse 76; Resp 16 S; Pulse Ox 100% on R/A; jl7 11:31 BP 118 / 68; Pulse 72; Resp 16 S; Pulse Ox 100% on R/A; jl7 MDM: 08:07 Patient medically screened. 10:56 Differential diagnosis: dvt, phlegmasia, gout. Data reviewed: vital signs, nurses gs notes. Response to treatment: the patient's symptoms have mildly improved after treatment, and as a result, I will discharge patient. 08/01 09:45 Order name: Uric Acid; Complete Time: 10:53 08/01 08:37 Order name: Extremity Venous Unilateral Ltd; Complete Time: 09:37 Administered Medications: 10:54 Drug: [place] 5 mg-325 mg 1 tabs Route: PO; jl7 11:32 Follow up: Response: No adverse reaction jl7 Disposition: 08/01/18 11:08 Discharged to Home. Impression: Other venous embolism and thrombosis. - Condition is Stable. - Discharge Instructions: Deep Vein Thrombosis. - Prescriptions for Tramadol 50 mg Oral Tablet - take 1 tablet by ORAL route every 8 hours as needed; 12 tablet. - Medication Reconciliation Form, Thank You Letter, Antibiotic Education, Prescription Opioid Use form. - Follow up: Private Physician; When: 1 - 2 days; Reason: Re-evaluation by your physician. Signatures: Dispatcher [employer] Nighat Berkowitz, RN RN aa5 Meri Santana RN RN jl7 Nayan Chang MD MD gs Corrections: (The following items were deleted from the chart) 11:33 11:08 08/01/2018 11:08 Discharged to Home. Impression: Other venous embolism and jl7 thrombosis. Condition is Stable. Forms are Medication Reconciliation Form, Thank You Letter, Antibiotic Education, Prescription Opioid Use. Follow up: Private Physician; When: 1 - 2 days; Reason: Re-evaluation by your physician. gs
[2018-08-01 11:39] VITALS: TEMP 98.3; O2SAT 100
[2018-08-01 11:42] VITALS: BP 118/68
--- NOTE | 2018-08-01 11:48 | P.CNS ---
Date of Consult: 08/01/18 Reason for Consult: ER consultation Requesting Physician: Nayan Chang Primary Care Provider: Dr. Suazo Chief Complaint: Left lower extremity swelling and pain History of Present Illness: 77-year-old male presented to the emergency room with lower lower extremity swelling and pain. Patient was recently hospitalized from 07/30 through 07/31 for left lower extremity DVT. Patient found to have thrombus to the left common femoral vein to the posterior tibial vein. Lovenox was initiated at that time. Echocardiogram unremarkable. Patient did well in his stay. Patient was eventually sent to the half-way on Eliquis. Eliquis 10 mg 1 pill twice daily for 7 days then 5 mg 1 pill twice daily for 3 months was initiated. This was continued at the half-way. Patient had been discharged without any problems. Patient came back to the emergency room today due to increased swelling and pain. In the ER patient evaluated. Swelling was noted to the left lower extremity. Repeat venous Doppler showed no progression of blood clot. ER requested consultation for recommendation. Patient with prior history of hypertension, chronic renal disease, stage III, Alzheimer's dementia, gout and neuropathy. Allergies No Known Allergies Allergy (Verified 12/24/13 05:58) Home medications list reviewed: Yes Home Medications: Albuterol Neb [Proventil 0.083% Neb Soln] 2.5 mg IH Q8HP PRN 07/30/18 Allopurinol 100 mg PO DAILY 07/30/18 Bismuth Subsalicylate [Bismuth] 2 tab PO Q4HP PRN 07/30/18 Memantine HCl/Donepezil HCl [Namzaric 28 mg-10 mg Capsule] 1 tab PO DAILY Terbinafine HCl [Lamisil At] 1 dion TP DAILYPRN PRN 07/30/18 Thiamine HCl [Vitamin B-1*] 100 mg PO DAILY 07/30/18 Apixaban [Eliquis] 5 mg PO SEECOM #70 tablet 07/31/18 Mupirocin Oint [Bactroban 2% Ointment] 8 appl TOP BID #1 tube 07/31/18 - Past Medical/Surgical History Diabetic: No -: Neuropathy -: Hypertension -: History of a right great toe osteomyelitis -: Gout -: Chronic renal disease, stage III -: Alzhiemer's dementia -: History of left lower extremity DVT -: Cyst Removal -: Appendectomy -: Knee surgery -: R foot sx -: Elbow Sx Psychosocial/ Personal History: Patient lives at the half-way. He has been there for over 2-1/2 years. He is currently . 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 - Social History Smoking Status: Unknown if ever smoked Alcohol use: Yes CD- Drugs: No Caffeine use: Yes Place of Residence: Shelter Review of Systems General: Unremarkable Eyes: Unremarkable ENT: Unremarkable Respiratory: Unremarkable Cardiovascular: Unremarkable Gastrointestinal: Unremarkable Genitourinary: Unremarkable Musculoskeletal: Leg Pain, Pedal edema, As per HPI Integumentary: Unremarkable Neurological: Unremarkable Lymphatics: Unremarkable Physical Examination Temp Pulse Resp BP Pulse Ox 98.3 F 76 16 123/71 08/01/18 07:56 08/01/18 07:56 08/01/18 07:56 08/01/18 07:56 General: Alert, In no apparent distress, Oriented x3, Cooperative HEENT: Atraumatic, Normocephalic Neck: Supple Respiratory: Clear to auscultation bilaterally, Normal air movement Cardiovascular: Normal pulses, Regular rate/rhythm Gastrointestinal: Normal bowel sounds, Soft and benign, Non-distended, No tenderness, No masses, No rebound, No guarding Musculoskeletal: No erythema, No tenderness, No warmth Integumentary: Other (Swelling to the left lower extremity noted. No significant erythema. No significant pain on palpation. Patient appears comfortable. No evidence of acute gout.) Neurological: Normal speech, Normal strength at 5/5 x4 extr, Normal tone, Dementia Laboratory Data (last 24 hrs) 08/01/18 10:09: Uric Acid 6.7 Conclusions/Impression: Impression: Left lower extremity edema secondary to acute left lower extremity DVT Hypertension Chronic renal disease, stage III Alzheimer's dementia Gout Neuropathy Plan: Repeat venous Doppler shows no extension of blood clot. Patient appears to be without any significant pain. Patient has started DVT medication-Eliquis. Case discussed with his PCP Dr. Suazo. Case also discussed with hematology. No need for readmission at this time since the patient has no extension of the DVT. No evidence of acute gout at this time. Patient will be sent back to the half-way to continue Eliquis at 10 mg twice daily for 7 days then 5 mg twice daily for 3 months. The patient will be provided medication for pain. He is to elevate his legs when sitting or lying. He is to monitor for further swelling, chest pain, shortness of breath or leg pain. If symptoms persists or worsen he is to come back to the emergency room. Patient may continue to have some swelling due to the DVT. His PCP Dr. Suazo will follow up with the patient in the next 1-2 days. Education on DVT will be provided. Case discussed with family who agrees with plan of care. Patient may benefit with hematology evaluation in the future to further monitor and address. Patient may continue his other medication for Alzheimer's dementia, gout. As mentioned previously he is to monitors blood pressures closely. If his blood pressure remains above 140/90 consistently then lisinopril may be restarted at a lower dose. This was addressed on prior hospitalization. Care discussed with ER physician who agrees with plan of care. Time Spent Managing Pts care (In Minutes): 55
== END 2018-08-01 11:33 | disposition home or self-care (01) ==
LOC: ER 07:47
DX: I82.890 Acute embolism and thrombosis of other specified veins (principal); I10 Essential (primary) hypertension; G30.9 Alzheimer's disease, unspecified; F02.80 Dementia in other diseases classified elsewhere, unspecified severity, without behavioral disturbance, psychotic disturbance, mood disturbance, and anxiety; M10.9 Gout, unspecified; Z79.01 Long term (current) use of anticoagulants; Z86.718 Personal history of other venous thrombosis and embolism
CPT/HCPCS: 36415; 84550; 93971; 99284